=== PATIENT | male | born 1945 | race African-American/Black ===

== ENCOUNTER 2025-06-04 21:39 | Emergency (ER) | payer MEDICARE, SELFPAY ==
[2025-06-04 21:39] VITALS: BMI 25.1
[2025-06-04 21:43] VITALS: BP 162/65
[2025-06-04 22:12] LABS: Hematocrit 41.8 % (39.0-52.0); Hemoglobin 13.4 g/dL (13.0-18.0); Mean Corp Hgb Conc. 32.1 g/dL (33.0-37.0); Mean Corpuscular Volume 88.9 fL (80.0-94.0); Nucleated Red Blood Cells % 0 % (-); Platelet Count 281 10^3/uL (130-400); Red Cell Dist. Width 12.5 % (11.5-14.5)
[2025-06-04 22:27] VITALS: BP 154/72
[2025-06-04] MEDS: ZOFRAN 4 MG IV (22:29)
[2025-06-04 22:30] LABS: Blood Urea Nitrogen 20 mg/dl (9-20); Calcium 10.1 mg/dl (8.4-10.2); Carbon Dioxide 29 mmol/L (22-30); Chloride 95 mmol/L (98-107); Estimated Creatinine Clearance 51 ml/min; Glucose 219 mg/dl (70-99); Potassium 4.5 mmol/L (3.5-5.1); Sodium 131 mmol/L (135-145); eGFR > 60.00
[2025-06-04] MEDS: MORPHINE SULFATE 4 MG IV (22:31)
[2025-06-04 23:00] VITALS: BP 133/65
--- NOTE | 2025-06-04 23:45 | ED.GENMED ---
History of Present Illness
General
Chief Complaint: Fall
Source: patient and family
Time Seen by Provider: 06/04/25 21:50
History of Present Illness
History of Present Illness:
Note:
CHIEF COMPLAINT(S)
Dizziness and fall with resultant pain.
HISTORY OF PRESENT ILLNESS
The patient is a 79-year-old male who presented after experiencing dizziness and a subsequent fall. He reports pain primarily in his ribs and back but denies any head pain. The fall resulted in him landing in an upside-down position, raising concern
for potential traumatic injury. Initial assessment revealed pain upon twisting, suggesting possible rib fractures. The patient experienced dizziness prior to the fall, but the cause of dizziness is uncertain. He is currently awake and alert.
PAST MEDICAL AND SURGICAL HISTORY
The patient has a history of hypertension.
CHRONIC MEDICAL CONDITIONS SIGNIFICANTLY AFFECTING CARE
Hypertension
SOCIAL DETERMINANTS AFFECTING HEALTH
The patient is on a DNR (Do Not Resuscitate) order, according to EMS records.
MEDICATIONS
Currently on medication for hypertension. Does not take aspirin, Plavix, or any blood thinners.
REVIEW OF SYSTEMS
- Cardiovascular: No mention of chest pain.
- Musculoskeletal: Pain noted primarily in the ribs and back after the fall.
- Neurological: Dizziness experienced before the fall.
PHYSICAL EXAM
General: Alert, no acute distress.
Skin: Warm, dry.
Head: Normocephalic, atraumatic.
Neck: Supple, trachea midline, cervical collar applied for protection.
Eye, Ears, Nose, Mouth, and Throat: Pupils equal, round, reactive to light. Oral mucosa moist.
Cardiovascular: Normal peripheral perfusion, no edema. Blood pressure recorded as 80s systolic.
Respiratory: Respirations are non-labored. Tenderness noted in the right flank area.
Gastrointestinal: Abdomen nondistended.
Back: Tenderness noted.
Musculoskeletal: Small abrasions noted on the right elbow and left forearm. Movements are bilaterally equal in all extremities. No midline spine tenderness.
Neurological: Alert and oriented to person, place, time, and situation. No focal neurological deficit observed.
Psychiatric: Cooperative, appropriate mood & affect.
PROBLEM LIST
Acute Problems:
- Dizziness and fall with subsequent rib and back pain
- Possible rib fracture
- Small abrasions on right elbow and left forearm
Chronic Problems:
- Hypertension
PLAN
- Protect cervical spine with a collar until imaging rules out any potential fracture or significant injury.
- Obtain imaging of the head, neck, chest, and abdomen to assess for any skeletal or internal injury due to the fall.
- Monitor vitals, particularly blood pressure, given the history of hypertension and current low readings.
- Assess blood glucose levels to rule out hypoglycemia as a cause of dizziness.
DIFFERENTIAL DIAGNOSIS
The Differential Diagnosis includes, in no particular order and is not limited to:
- Orthostatic hypotension
- Vertigo
- Arrhythmia
- Hypoglycemia
- Dehydration
- Anemia
- Stroke or transient ischemic attack
- Rib fractures
- Musculoskeletal strain
- Vestibular dysfunction
Disposition:
SUMMARY OF ENCOUNTER
The patient is a 79-year-old male who presented to the emergency department after experiencing a fall down the stairs. Initial concerns included potential head and cervical spine injuries, hence imaging studies were performed. The head CT revealed
no intracranial hemorrhage, and the cervical spine CT showed no cervical spine fracture. CT imaging of the chest and abdomen revealed a small lucency in the right L5 lamina extending to the superior articular process, suspicious for a non-displaced
fracture. A 1.2 cm nodule was noted, known to the family and designated for outpatient follow-up. Laboratory tests indicated a white blood cell count of 12.2 and hematocrit of 13, with chemistries largely normal except for mild hyperglycemia at 219
mg/dL. The patient reported nighttime hypoglycemia, and adjustment of insulin dosage was recommended. Acetaminophen was recommended for pain control, and instructions for pain management on an as-needed basis were provided.
PLAN
Continued use of a cervical collar for stabilization until follow-up evaluation by a holistic specialist is complete. Monitoring and adjustment of insulin dosage as suggested to manage nighttime hypoglycemia. Use of acetaminophen for pain relief.
Follow up with a specialist for the noted spinal changes and pulmonary nodule.
INDEPENDENT REVIEW OF LABS AND INTERPRETATION OF TESTS
-My independent review of the complete blood count indicates leukocytosis with a white count of 12.2.
-My independent review of basic metabolic panel shows mildly elevated blood glucose of 219 mg/dL.
PROCEDURES
Imaging included head CT, cervical spine CT, and CT scan of chest, abdomen, and pelvis.
PATIENT EDUCATION AND COUNSELING
The patient was educated on nighttime hypoglycemia and advised to reduce the dose of Lantus insulin until further consultation with his primary care physician. Instructions were provided for outpatient management of pain using acetaminophen as
needed.
FOLLOW-UP INSTRUCTIONS
Please pursue outpatient follow-up with a holistic specialist for the identified lucency in the right L5 lamina. Coordination with primary care is recommended for management of the insulin regimen and monitoring nocturnal blood glucose levels. Follow
up with regard to the pulmonary nodule as scheduled by the family.
MEDICATION RECONCILIATION
Recommended acetaminophen for pain management on an as-needed basis. Suggested reduction of Lantus insulin dose until further consultation with a healthcare provider.
MEDICAL DECISION MAKING
1. Number and Complexity of Problems Addressed: Chronic conditions affecting care include hypertension and identified glucose management issues. Dizziness and fall; possible non-displaced fracture; observed leukocytosis; mild hyperglycemia.
2. Data:
-Category 1: Imaging tests independently reviewed include head CT, cervical spine CT, and CT of chest, abdomen, and pelvis. Lab data reviewed include CBC indicating leukocytosis, and basic metabolic panel showing elevated blood glucose.
-Category 3: Coordination of future care with primary care and a specialist for ongoing nodule and spine evaluation.
3. Risk: Given the findings and the conditions managed, the patient was considered for further outpatient management without immediate hospitalization.
DIAGNOSIS
-Non-displaced spine fracture, lumbar region, initial encounter (S32.029A)
-Elevated leukocyte count (D72.829)
-Hyperglycemia, unspecified (R73.9)
-Dizziness and giddiness (R42)
Phy Exam
Physical Exam
Physical Exam:
.
Course
Orders/Labs/Results
Orders:
Orders
06/04/25 21:54
CT Head W/o Iv Contrast Urgent
Comment:
Reason For Exam: fall down flight of steps
Cardiac Monitoring- Treatment ONCE
06/04/25 21:55
CT Cervical Spine W/o Iv Contr Urgent
Comment:
Reason For Exam: fall down flight of steps
CT Chest/abd/pel W Iv Cont Urgent
Comment: combined order
Reason For Exam: fall down flight of steps
06/04/25 22:05
Basic Metabolic Panel Urgent
06/04/25 22:06
Complete Blood Count/With Diff Urgent
06/04/25 22:28
Morphine Sulfate 4 mg .ROUTE .STK-MED ONE
Ondansetron Injectable [Zofran] 4 mg .ROUTE .STK-MED ONE
06/04/25 22:29
Ondansetron Injectable [Zofran] 4 mg IV NOW STA
06/04/25 22:31
Morphine Sulfate 4 mg IV NOW STA
Abnormal Lab Results
06/04/25 06/04/25
22:05 22:06
WBC 12.2 H 10^3/uL
(4.8-10.8)
MCHC 32.1 L g/dL
(33.0-37.0)
Absolute Neuts (auto) 7.5 H 10^3/uL
(1.4-6.5)
Absolute Lymphs (auto) 3.6 H 10^3/uL
(1.2-3.4)
Absolute Monos (auto) 1.0 H 10^3/uL
(0.1-0.6)
Sodium 131 L mmol/L
(135-145)
Chloride 95 L mmol/L
(98-107)
Glucose 219 H mg/dl
(70-99)
06/04/25 22:06
06/04/25 22:05
Vital Signs
Initial and Last Documented VS:
Initial Vital Signs
Temp Pulse Resp BP Pulse Ox
98.4 F 73 20 162/65 98
06/04/25 21:43 06/04/25 21:43 06/04/25 21:43 06/04/25 21:43 06/04/25 21:43
Last Documented Vital Signs
Temp Pulse Resp BP Pulse Ox
98.4 F 69 22 145/82 100
06/04/25 21:43 06/05/25 00:00 06/05/25 00:00 06/05/25 00:00 06/04/25 23:46
*Pulse Oximetry
SaO2: 100
Oxygen Mode of Delivery: Room air
Patient hypoxic: no
*Critical Care Note
Total Time (30-74mins, 75-104mins- exclusive of procedures): 30 minutes
ED Attending Note
-
Portions of this chart may have been created with voice recognition software.� Occasional wrong word or��sound alike� substitutions may have occurred due to the inherent limitations of voice recognition software.
Discharge Plan
Departure
Patient Disposition: Home (Routine Discharge)
Date of Disposition: 06/04/25
Time of Disposition: 23:48
Patient with high blood pressure during this ER visit?: Yes
Discharge Problem:
Nondisplaced lumbar spine fracture, Acute hyperglycemia
Instructions: Low back pain (DC), BLOOD PRESSURE
Prescriptions:
New
hydrocodone-acetaminophen 5-325 mg tablet
2 tab PO Q6H PRN (Reason: Pain) Qty: 12 0RF
No Action
losartan 50 mg Tablet
50 mg PO DAILY
metformin 1,000 mg Tablet
1,000 mg PO BID
insulin lispro 100 unit/mL Insulin Pen
24 - 30 sliding scale dose SC DIRECTED
rosuvastatin 20 mg Tablet
20 mg PO DAILY
insulin glargine [Lantus Solostar U-100 Insulin] 100 unit/mL (3 mL) Insulin Pen
22 unit SC DAILY
Referrals:
Jenny Villaseñor DO [Active, Orthopedics]
Nigel Hansen MD [Active, Orthopedics]
Crow Antonio DO [Family Provider]
Activity Restrictions/Additional Instructions:
Nondisplaced lumbar spine fracture
Pulmonary nodule
Please rest and use Tylenol for pain. Use pain medication for breakthrough pain. Please follow-up with your doctor in the next 1 week. Please also see spine surgery for follow-up in the next 1 to 2 weeks. Further imaging may be warranted if pain
persist. Return immediately for numbness, tingling, weakness of any kind or any other concerns.
Interventions
Interventions:
*Risk Screen - Suicide Last Done: 06/04/25 22:01
*General Assessment Last Done: 06/04/25 22:01
*Neglect/Abuse Screening Last Done: 06/04/25 22:01
*ED- Fall Risk Assessment Last Done: 06/04/25 22:01
*ED COVID-19 Vaccine History Last Done: 06/04/25 22:01
*ED Influenza Vaccine History Last Done: 06/04/25 22:01
*Nursing Disposition Last Done: 06/05/25 00:22
ED-Musculoskeletal Assessment Last Done: 06/04/25 22:01
ED- Neurological Assessment Last Done: 06/04/25 22:01
ED-Skin Assessment Last Done: 06/04/25 22:01
Discharge Date and Time
Discharge Date/Time: 06/05/25 00:23
Print Language: [email or web address]
[2025-06-05] VITALS: BP 145/82
== END 2025-06-05 00:23 | disposition home or self-care (01) ==
LOC: EMR 21:39
PROVIDERS: EMERGENCY PHYSICIAN Emergency Medicine; FAMILY PHYSICIAN Family Medicine
DX: S32.009A Unspecified fracture of unspecified lumbar vertebra, initial encounter for closed fracture (principal); S50.311A Abrasion of right elbow, initial encounter; W10.9XXA Fall (on) (from) unspecified stairs and steps, initial encounter; I10 Essential (primary) hypertension; D72.829 Elevated white blood cell count, unspecified
CPT/HCPCS: 99284; 96374; 96375; 70450; 71260; 72125; 74177; 80048; 85025; Q9967